=== PATIENT | male | born 1975 | race Caucasian/White ===

== ENCOUNTER → 2021-09-06 | Outpatient (REF) ==
--- NOTE | 2021-09-07 04:59 | REP ---
INDICATION: KNEE PAIN COMPARISON: None. TECHNIQUE: AP, lateral, bilateral oblique and sunrise views. FINDINGS: Mildly increased sclerosis along the tibial plateau with very minimal joint space narrowing. 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 No significant anterior swelling. No effusion. No evidence for acute fracture. IMPRESSION: Mild chronic and degenerative changes suggested as above. <Electronically signed by Delfino Flynn > 09/07/21 [id number]
== END ==
LOC: M PLAIMG 13:08
PROVIDERS: ATTEND Internal Medicine
DX: Z00.00 Encounter for general adult medical examination without abnormal findings (principal)